=== PATIENT | female | born 1960 | race Caucasian/White ===

== ENCOUNTER → 2016-12-11 | Outpatient (CLI) | payer OTHER ==
[~2016-12-11] MED LIST: ADVIN25/60 INH; ALBU1AER9 INH; CLIN300C2 PO; CLON0.1T12 PO; CLON0.5T3 PO; DICL1GEL12 TOP; DICL1GEL28 TOP; LSN/2025 PO; LSN40 PO; MAGN250T22 PO; METF-841 PO; METF500T5 PO; OXYC1TAB3 PO; POTA20TA16 PO; PROM25TA9 PO
[2016-12-11 12:58] LABS: HEMATOCRIT 42.6 % (37-47); MEAN CELL VOLUME 89.1 fL (80-100); MEAN CORPUSCULAR HEMOGLOBIN 29.5 pg (25-34); MEAN CORPUSCULAR HGB CONC 33.1 g/dl (32-36); MEAN PLATELET VOLUME 11.9 fL (7.4-10.4); PLATELET COUNT 295 K/uL (130-400); RED BLOOD COUNT 4.78 M/uL (4.2-5.4)
[2016-12-11 13:10] LABS: ALT/SGPT 25 U/L (12-78); AST/SGOT 11 U/L (15-37); BLOOD UREA NITROGEN 9 mg/dl (7-18); BUN/CREATININE RATIO 12.6 (10-20); CALCIUM 8.8 mg/dl (8.5-10.1); CARBON DIOXIDE 31 mmol/L (21-32); CHLORIDE 105 mmol/L (98-107); CREATININE 0.73 mg/dl (0.60-1.20); GLUCOSE 107 mg/dl (70-99); SODIUM 142 mmol/L (136-145)
[2016-12-11 13:13] LABS: ALB/GLOB RATIO 1.6 (0.9-2); ALKALINE PHOSPHATASE 72 U/L (45-117); CHOLESTEROL 200 mg/dl (0-200); CHOLESTEROL/HDL RATIO 2.9; HDL CHOLESTEROL 68 mg/dl; LDL CHOLESTEROL CALCULATED 98 mg/dl; TRIGLYCERIDES 170 mg/dl (0-150); VERY LOW DENSITY LIPOPROT CALC 34 mg/dl
[2016-12-11 13:58] LABS: ESTIMATED AVERAGE GLUCOSE 123 mg/dl; HA1C FLAG Normal (Normal)
== END | disposition home or self-care (01) ==
LOC: C.LAB 11:46
PROVIDERS: ATTEND Family Medicine
DX: L40.50 Arthropathic psoriasis, unspecified (principal); I10 Essential (primary) hypertension; E11.9 Type 2 diabetes mellitus without complications; E78.5 Hyperlipidemia, unspecified

== ENCOUNTER → 2016-12-13 | Outpatient (CLI) | payer OTHER | END | disposition home or self-care (01) | LOC: C.PATHSPEC 11:44 | PROVIDERS: ATTEND Plastic Surgery | DX: L98.9 Disorder of the skin and subcutaneous tissue, unspecified (principal) ==

== ENCOUNTER → 2017-02-28 | Outpatient (CLI) | payer OTHER ==
[2017-02-28 14:27] LABS: BENZODIAZEPINE, URINE NEG (NEG); COCAINE,URINE NEG (NEG); PHENCYCLIDINE, URINE NEG (NEG)
== END | disposition home or self-care (01) ==
LOC: C.LAB 12:34
PROVIDERS: ATTEND Family Medicine
DX: Z51.81 Encounter for therapeutic drug level monitoring (principal)

== ENCOUNTER → 2017-05-17 | Outpatient (CLI) | payer OTHER ==
[2017-05-17 12:22] LABS: BASO ABS # 0.07 K/uL (0-0.2); COMPLETE YES; EOS % 10.3 %; HEMATOCRIT 44.5 % (37-47); IG% 0.3 %; LYMPH % 33.5 %; LYMPH ABS # 2.27 K/uL (1.2-3.4); MEAN CELL VOLUME 90.3 fL (80-100); MEAN CORPUSCULAR HEMOGLOBIN 29.4 pg (25-34); MEAN CORPUSCULAR HGB CONC 32.6 g/dl (32-36); NEUT % 49.9 %; PLATELET COUNT 221 K/uL (130-400); RED BLOOD COUNT 4.93 M/uL (4.2-5.4); WHITE BLOOD COUNT 6.78 K/uL (4.8-10.8)
[2017-05-17 12:43] LABS: ALT/SGPT 27 U/L (12-78); BLOOD UREA NITROGEN 13 mg/dl (7-18); BUN/CREATININE RATIO 19.5 (10-20); CARBON DIOXIDE 25 mmol/L (21-32); CHLORIDE 106 mmol/L (98-107); CHOLESTEROL 198 mg/dl (0-200); CREATININE 0.64 mg/dl (0.60-1.20); GLUCOSE 99 mg/dl (70-99); POTASSIUM 3.9 mmol/L (3.5-5.1); SODIUM 141 mmol/L (136-145); TRIGLYCERIDES 78 mg/dl (0-150); VERY LOW DENSITY LIPOPROT CALC 16 mg/dl
[2017-05-17 12:54] LABS: ALB/GLOB RATIO 1.3 (0.9-2); ALKALINE PHOSPHATASE 63 U/L (45-117); AST/SGOT 16 U/L (15-37); CHOLESTEROL/HDL RATIO 2.6; HDL CHOLESTEROL 76 mg/dl; LDL CHOLESTEROL CALCULATED 106 mg/dl
[2017-05-17 13:50] LABS: ESTIMATED AVERAGE GLUCOSE 120 mg/dl; HA1C FLAG Normal (Normal)
== END | disposition home or self-care (01) ==
LOC: C.LAB 10:48
PROVIDERS: ATTEND Nurse Practitioner Family
DX: E11.9 Type 2 diabetes mellitus without complications (principal); E78.5 Hyperlipidemia, unspecified; Z13.29 Encounter for screening for other suspected endocrine disorder

== ENCOUNTER 2017-06-07 01:11 | Emergency (ER) | payer OTHER ==
[~2017-06-07] VITALS: Ht 161.3 cm; Wt 74.4 kg
[~2017-06-07 01:11] MED LIST changes: -CLIN300C2 PO; -DICL1GEL12 TOP; -LSN40 PO; -MAGN250T22 PO; -METF-841 PO; -OXYC1TAB3 PO
[2017-06-07 01:18] VITALS: TEMP 36.6; Ht 161.3 cm; Wt 74.4 kg
[2017-06-07] MEDS ORDERED: OXYC1TAB3 PO (01:58)
[2017-06-07] MEDS ORDERED: LSN40 PO (01:58)
[2017-06-07] MEDS ORDERED: DICL1GEL12 TOP (01:58)
[2017-06-07] MEDS ORDERED: METF-841 PO (01:58)
[2017-06-07] MEDS ORDERED: MAGN250T22 PO (01:58)
[2017-06-07 02:24] LABS: BASO % 0.4 %; BASO ABS # 0.04 K/uL (0-0.2); COMPLETE YES; EOS % 7.4 %; IG% 0.3 %; LYMPH % 33.9 %; LYMPH ABS # 3.74 K/uL (1.2-3.4); MEAN CELL VOLUME 90.2 fL (80-100); MEAN CORPUSCULAR HEMOGLOBIN 29.7 pg (25-34); MEAN PLATELET VOLUME 11.2 fL (7.4-10.4); MONO % 5.6 %; NEUT % 52.4 %; PLATELET COUNT 295 K/uL (130-400); RED BLOOD COUNT 4.88 M/uL (4.2-5.4); WHITE BLOOD COUNT 11.02 K/uL (4.8-10.8)
[2017-06-07] MEDS ORDERED: CEFTRIAXONE SOD INJ 1 GM ADDVIAL IV STA (02:26)
[2017-06-07 02:45] LABS: BUN/CREATININE RATIO 15.6 (10-20); CALCIUM 9.3 mg/dl (8.5-10.1); CREATININE 0.92 mg/dl (0.60-1.20); POTASSIUM 3.6 mmol/L (3.5-5.1)
[2017-06-07 02:46] LABS: C-REACTIVE PROTEIN 0.32 mg/dl (0-0.29)
[2017-06-07] MEDS ORDERED: CLIN300C2 PO (03:14)
[2017-06-07] MEDS ORDERED: CLINDAMYCIN 150MG HOME PACK PO ONE (03:15)
--- NOTE | 2017-06-07 03:15 | EMERGENCY ROOM VISIT NOTE ---
History First contact with patient: 01:33 Chief Complaint: INFECTION Stated Complaint: SKIN PROBLEM Nursing Triage Summary: pt reports she was stung by a wasp on June 04. reports increased swelling to right foot with blistering. states "it feels like burning. it didn't look like this yesterday." right foot noted to have +3 pitting edema and 2 quarter sized blisters, intact, on the outer aspect of right ankle. sensation intact. no drainage or openings at this time. History of Present Illness The patient is a 57 year old female who presents to the Emergency Room with complaints of swelling and redness of the right lower leg. The patient states that she was stung by a wasp 3 days ago. She states that soon after, she developed mild redness and warmth surrounding the area of the sting. She states that she was at work today and noticed swelling of the lower leg and foot. She has a few areas of blistering to the outside of the right lower leg. She rates her discomfort a 6/10. She denies any fevers. She denies any difficulty moving the ankle. She denies any history of infections. The patient is diabetic. Review of Systems A complete 10 point review of systems was reviewed with the patient with pertinent positives and negatives as per history of present illness. All else were negative. Past Medical/Surgical History Medical Problems: (1) Psoriatic arthritis (2) Spinal stenosis Family History Hypertension Stroke FATHER Social History Smoking Status: Never Smoker Alcohol Use: none Drug Use: none Marital Status: single Housing Status: lives alone Occupation Status: employed Current/Historical Medications Scheduled Clindamycin Hcl (Cleocin), 300 MG PO QID Lisinopril (Lisinopril), 40 MG PO DAILY Magnesium Oxide (Magnesium), Unknown Dose PO DAILY Metformin HCl (Metformin HCl ER), 1,000 MG PO BID Scheduled PRN Diclofenac Sodium (Topical) (Voltaren 1% Top Gel), 1 APPLN TOP QID PRN for Pain Oxycodone Ir (Roxicodone Ir), 5 MG PO QID PRN for Pain Allergies Coded Allergies: Aspirin (Verified Allergy, Unknown, 06/07/17) NSAIDs (Verified Allergy, Unknown, ., 06/07/17) Sulfa Drugs (Verified Allergy, Unknown, 06/07/17) Physical Exam Vital Signs Date Time Temp Pulse Resp B/P (MAP) Pulse Ox O2 Delivery O2 Flow Rate FiO2 7/7/17 03:18 91 18 138/92 97 Room Air 06/07/17 01:18 36.6 94 16 136/91 96 Room Air Physical Exam VITALS: Vitals are noted on the nurse's note and reviewed by myself. Vital signs stable. GENERAL: This is a 57-year-old female, in no acute distress, nondiaphoretic, well-developed well-nourished. HEART: Regular rate and rhythm without murmurs gallops or rubs. LUNGS: Clear to auscultation bilaterally without wheezes, rales or rhonchi. EXTREMITIES: There is an area of erythema and warmth to touch over the anterior right lower leg which measures approximately 6 cm in diameter. There is moderate nonpitting edema to the right foot and lower leg. There are a few blisters over the lateral right ankle. The erythema does not extend into the foot. There is no lymphangitic streaking. MUSCULOSKELETAL: Full range of motion of the right ankle. NEURO: Patient was alert and oriented to person place and time. Medical Decision & Procedures Laboratory Results 06/07/17 02:14 Red Blood Count 4.88, Mean Corpuscular Volume 90.2, Mean Corpuscular Hemoglobin 29.7, Mean Corpuscular Hemoglobin Concent 33.0, Mean Platelet Volume 11.2, Neutrophils (%) (Auto) 52.4, Lymphocytes (%) (Auto) 33.9, Monocytes (%) (Auto) 5.6, Eosinophils (%) (Auto) 7.4, Basophils (%) (Auto) 0.4, Neutrophils # (Auto) 5.77, Lymphocytes # (Auto) 3.74, Monocytes # (Auto) 0.62, Eosinophils # (Auto) 0.82, Basophils # (Auto) 0.04 06/07/17 02:14 Test 06/07/17 02:14 White Blood Count 11.02 K/uL (4.8-10.8) Red Blood Count 4.88 M/uL (4.2-5.4) Hemoglobin 14.5 g/dL (12.0-16.0) Hematocrit 44.0 % (37-47) Mean Corpuscular Volume 90.2 fL (80-100) Mean Corpuscular Hemoglobin 29.7 pg (25-34) Mean Corpuscular Hemoglobin Concent 33.0 g/dl (32-36) Platelet Count 295 K/uL (130-400) Mean Platelet Volume 11.2 fL (7.4-10.4) Neutrophils (%) (Auto) 52.4 % Lymphocytes (%) (Auto) 33.9 % Monocytes (%) (Auto) 5.6 % Eosinophils (%) (Auto) 7.4 % Basophils (%) (Auto) 0.4 % Neutrophils # (Auto) 5.77 K/uL (1.4-6.5) Lymphocytes # (Auto) 3.74 K/uL (1.2-3.4) Monocytes # (Auto) 0.62 K/uL (0.11-0.59) Eosinophils # (Auto) 0.82 K/uL (0-0.5) Basophils # (Auto) 0.04 K/uL (0-0.2) RDW Standard Deviation 49.4 fL (36.4-46.3) RDW Coefficient of Variation 14.9 % (11.5-14.5) Immature Granulocyte % (Auto) 0.3 % Immature Granulocyte # (Auto) 0.03 K/uL (0.00-0.02) Erythrocyte Sedimentation Rate 2 mm/hr (0-21) Anion Gap 6.0 mmol/L (3-11) Est Creatinine Clear Calc Drug Dose 65.1 ml/min Estimated GFR () 79.6 Estimated GFR (Non- 68.6 BUN/Creatinine Ratio 15.6 (10-20) Calcium Level 9.3 mg/dl (8.5-10.1) C-Reactive Protein 0.32 mg/dl (0-0.29) Medications Administered Medications (Trade) Dose Ordered Sig/Subha Route Start Time Stop Time Status Last Admin Dose Admin Ceftriaxone Sodium (Rocephin Inj) 1 gm NOW STAT IV 06/07/17 02:26 06/07/17 02:27 DC 06/07/17 02:37 1 GM Clindamycin HCl (Cleocin 150MG Home Pack) 1 homepack UD ONCE PO 06/07/17 03:15 06/07/17 03:16 DC 06/07/17 03:22 1 HOMEPACK ED Course The patient was evaluated as above. Labs were drawn and IV access was obtained. Patient was medicated with 1 g Rocephin IV. Patient was reevaluated and findings were discussed. The patient will be discharged home with close follow up. Discharge instructions were reviewed with the patient. She was given a homepack of Clindamycin. The patient verbalized understanding of my assessment and treatment plan and was discharged home in good condition. Medical Decision Differential diagnosis includes cellulitis, abscess, allergic reaction, DVT, among others. The patient is a 57-year-old female who presents today complaining of redness and swelling of the right lower leg. Exam is consistent with cellulitis. The patient does have impressive swelling. Labs revealed a mild leukocytosis. The patient is afebrile. She has good range of motion of the ankle and I do not feel she has a septic joint. She will be placed on clindamycin as she has an allergy to sulfa antibiotics. I did encourage her to elevate her legs to help with swelling. She will need close follow-up with her primary care provider and will need to return here immediately if her symptoms worsen. Based on the patient's presentation and work up, I feel the patient is stable for outpatient treatment. The patient was educated to return to the emergency department for any worsening of their current condition or new/concerning symptoms. She will follow up with her PCP. Medication reconciliation: I attest that I have personally reviewed the patient 's current medication list. Blood Pressure Screening: Patient was found to have a slightly elevated blood pressure due to circumstances. I do not believe that the patient requires hypertension monitoring. Impression Primary Impression: Cellulitis of lower extremity Departure Information Dispostion Home / Self-Care Condition GOOD Prescriptions Clindamycin Hcl (CLEOCIN) 300 Mg Cap 300 MG PO QID for 7 Days, #28 CAP Prov: Yamileth Gannon PA-C 06/07/17 Referrals Oscar Young III, CRNP (PCP) Patient Instructions My [facility] Additional Instructions You were prescribed clindamycin to be taken as prescribed. This is an antibiotic. All antibiotics have the potential to cause diarrhea. Stop this medication and contact a medical provider if you were to develop any significant adverse side effects including: wheezing, shortness of breath, passing out, vomiting, or a diffuse rash. Always take antibiotics as directed and COMPLETE the ENTIRE course regardless of the improvement of your symptoms. For pain control, you can use the following [id number] medicines (if >12 yo): - Regular strength (325mg/tab) Tylenol (acetaminophen) 2 tabs every 4-6 hours as needed. Do not exceed 12 tablets in a 24 hour period. Avoid taking more than 4 grams (4000 mg) of Tylenol per day. This includes any other sources of acetaminophen you may take on a regular basis. - Regular strength (200 mg/tab) Advil (ibuprofen) 1-2 tabs every 4-6 hours as needed. Do not exceed a dose of 3200 mg per day. Follow-up with your primary care provider for a recheck on Saturday. Return here for worsening pain, worsening swelling, increasing redness, fever or any other new/concerning symptoms. Problem Qualifiers Primary Impression: Cellulitis of lower extremity Laterality: right Qualified Codes: L03.115 - Cellulitis of right lower limb
[2017-06-07 03:18] VITALS: BP 138/92; PULSE 91; O2SAT 97
== END 2017-06-07 03:29 | disposition home or self-care (01) ==
LOC: C.EDB 01:11
DX: L03.115 Cellulitis of right lower limb (principal); S90.861A Insect bite (nonvenomous), right foot, initial encounter; W57.XXXA Bitten or stung by nonvenomous insect and other nonvenomous arthropods, initial encounter

== ENCOUNTER → 2017-09-23 | Outpatient (CLI) | payer OTHER ==
[~2017-09-23] MED LIST changes: -ADVIN25/60 INH; -ALBU1AER9 INH; -CLON0.1T12 PO; -CLON0.5T3 PO; +DICL1GEL12 TOP; -DICL1GEL28 TOP; -LSN/2025 PO; +LSN40 PO; +MAGN250T22 PO; +METF-841 PO; -METF500T5 PO; +OXYC1TAB3 PO; -POTA20TA16 PO; -PROM25TA9 PO
== END | disposition home or self-care (01) ==
LOC: C.PATHSPEC 16:35
PROVIDERS: ATTEND Dermatology
DX: D22.9 Melanocytic nevi, unspecified (principal)

== ENCOUNTER → 2018-01-02 | Outpatient (CLI) | payer BC ==
[2018-01-02 12:38] LABS: BLOOD UREA NITROGEN 12 mg/dl (7-18); CARBON DIOXIDE 31 mmol/L (21-32); CREATININE 0.84 mg/dl (0.60-1.20); GLUCOSE 101 mg/dl (70-99); POTASSIUM 3.8 mmol/L (3.5-5.1); SODIUM 139 mmol/L (136-145)
== END | disposition home or self-care (01) ==
LOC: C.LAB1850 10:53
PROVIDERS: ATTEND Nurse Practitioner Adult Health
DX: I10 Essential (primary) hypertension (principal)

== ENCOUNTER → 2018-02-21 | Outpatient (CLI) | payer BC | END | disposition home or self-care (01) | LOC: C.LAB 14:46 | PROVIDERS: ATTEND Physician Assistant | DX: R19.7 Diarrhea, unspecified (principal) ==

== ENCOUNTER 2019-10-20 15:56 | Observation (INO) ==
[2019-10-20 16:47] LABS: Basophils # (auto) 0.08 K/uL (0-0.2); Eosinophils # (auto) 0.38 K/uL (0-0.5); Eosinophils % (auto) 4.7 %; Hemoglobin 15.8 g/dL (12.0-16.0); Immature Granulocytes # (auto) 0.02 K/uL (0.00-0.02); Immature Granulocytes % (auto) 0.2 %; Lymphocytes # (auto) 2.83 K/uL (1.2-3.4); Lymphocytes % (auto) 35.2 %; Mean Corpuscular Hemoglobin 30.1 pg (25-34); Mean Corpuscular Hgb Conc 34.3 g/dL (32-36); Mean Corpuscular Volume 87.6 fL (80-100); Mean Platelet Volume 11.5 fL (7.4-10.4); Monocytes # (auto) 0.48 K/uL (0.11-0.59); Neutrophils # (auto) 4.26 K/uL (1.4-6.5); Neutrophils % (auto) 52.9 %; Platelet Count 258 K/uL (130-400); RDW Coefficient of Variation 14.4 % (11.5-14.5); RDW Standard Deviation 46.2 fL (36.4-46.3); Red Blood Count 5.25 M/uL (4.2-5.4); White Blood Count 8.05 K/uL (4.8-10.8)
--- NOTE | 2019-10-20 16:50 | XRay Report ---
XR chest 1V portable CLINICAL HISTORY: 59 years-old Female presenting with htn. TECHNIQUE: Portable upright AP view of the chest was obtained. COMPARISON: 01/09/2009. FINDINGS: Cardiac silhouette mildly enlarged. No focal opacity. No large effusion or pneumothorax. Osseous stru ctures normal. Upper abdomen normal. IMPRESSION: 1. No acute cardiopulmonary disease. Electronically signed by: Ghulam Combs M.D. 10/20/2019 4:48 PM
[2019-10-20 16:56] LABS: INR 0.9 (0.9-1.1); Prothrombin Time 9.7 Seconds (9.0-12.0)
[2019-10-20 17:10] LABS: Alanine Aminotransferase 25 U/L (12-78); Albumin Level 4.4 gm/dl (3.4-5.0); Aspartate Aminotransferase 17 U/L (15-37); BUN Creatinine Ratio 6.8 (10-20); Blood Urea Nitrogen 6 mg/dl (7-18); Calcium 9.8 mg/dl (8.5-10.1); Carbon Dioxide 22 mmol/L (21-32); Chloride 105 mmol/L (98-107); Est GFR (African American) 81.6; Est GFR (Non-African American) 70.4; Glucose 89 mg/dl (70-99); Potassium 3.1 mmol/L (3.5-5.1); Sodium 140 mmol/L (136-145)
[2019-10-20 17:15] LABS: Albumin Globulin Ratio 1.3 (0.9-2); Alkaline Phosphatase 79 U/L (45-117); Bilirubin,Total 0.4 mg/dl (0.2-1); Globulin 3.4 gm/dl (2.5-4.0); Total Protein 7.8 gm/dl (6.4-8.2); Troponin I < 0.015 ng/ml (0-0.045)
[2019-10-20 18:10] LABS: Appearance Urine Clear (Clear); Bilirubin Urine Negative (Negative); Blood Urine Negative (Negative); Color Urine Yellow; Glucose Urine UA Negative (Negative); Ketones Urine 1+ (Negative); Leukocyte Esterase Urine Negative (Negative); Nitrite Urine Negative (Negative); Protein Urine Negative (Negative); Specific Gravity Urine 1.009 (1.000-1.030); Urobilinogen Urine Negative (Negative)
[2019-10-20] MEDS ORDERED: LABETALOL HCL IV 5 MG/ML 20ML IV STA ×2 (18:21→19:05)
[2019-10-20] MEDS ORDERED: ACETAMINOPHEN 500 MG TAB PO STA (18:30)
[2019-10-20] MEDS ORDERED: GLUCOSE 10 TABS/TUBE PO PRN (20:12)
[2019-10-20] MEDS ORDERED: GLUCOSE 40% GEL 15 GM TUBE PO PRN (20:12)
[2019-10-20] MEDS ORDERED: CARBOHYDRATES FOR HYPOGLYCEMIA PO PRN (20:12)
[2019-10-20] MEDS ORDERED: LABETALOL HCL IV 5 MG/ML 20ML IV PRN (20:12)
[2019-10-20] MEDS ORDERED: GLUCAGON FOR INJ 1 MG VIAL SQ PRN (20:12)
[2019-10-20] MEDS ORDERED: ACETAMINOPHEN 325 MG TAB PO PRN (20:12)
[2019-10-20] MEDS ORDERED: POTASSIUM CHLORIDE 20 MEQ TABCR PO STA (20:12)
[2019-10-20] MEDS ORDERED: AMLODIPINE BESYLATE 5 MG TAB PO ONE (20:12)
[2019-10-20] MEDS ORDERED: hydroCHLOROthiazide 25 MG TAB PO STA (20:12)
[2019-10-20] MEDS ORDERED: DEXTROSE 50% 50 ML SYRINGE IV PRN (20:12)
--- NOTE | 2019-10-20 20:43 | History & Physical Report ---
Date of Service October 20, 2019 Assessment & Plan (1) Hypertensive urgency: -Admit to telemetry -Patient presenting from home for evaluation of elevated blood pressure -Patient was seen by PCP on 10/01 and lisinopril was changed to irbesartan; patient notes increasing blood pressure since that time -irbesartan was increased from 75 mg to 150 mg yesterday; patient started Norvasc 2.5 mg today (with instructions to increase to 5 mg daily in 1 week) -Upon arrival to the ED, patient's blood pressure was significantly elevated at 210/141 -Received labetalol 10 mg IV x2 doses and BP improved to 185/108 -will increase Norvasc to 5 mg daily (giving 2.5 mg tonight), start HCTZ 12.5 mg daily, and continue irbesartan; patient also takes clonidine 0.1 mg nightly for sleep, will continue, consider increasing if needed for BP control -PRN labetalol -Echo -Renal artery ultrasound to evaluate for stenosis (2) Hypokalemia: -K+ 3.1 -Mg+ WNL -potassium chloride 40meq x 1 tonight; start 20meq BID tomorrow due to starting HCTZ (3) DM type 2 (diabetes mellitus, type 2): -hgb a1c 5.9 10/2019 -hold metformin, utilize Novolog per protocol while hospitalized (4) Psoriatic arthritis: -Continue home pain medications (5) DVT prophylaxis: -SCDs, ambulate History of Present Illness Chief Complaint: Hypertension Primary Care Provider: Juanita Desai DO 59-year-old female who presents the ED for evaluation of hypertension. Patient has been having ongoing elevated blood pressures for the past couple weeks. Patient was seen by her PCP on 10/01 and at that time lisinopril 40 mg was changed to irbesartan 75 mg daily. Patient has been monitoring her blood pressure as an outpatient and irbesartan was increased to 150 mg yesterday. This morning, patient started Norvasc 2.5 mg daily. She reports an ongoing headache for the past 1 month. She denies any blurred vision. No unilateral weakness, numbness, tingling. She denies lightheadedness, dizziness, diaphore sis, syncopal events. No chest pain or shortness of breath. Denies abdominal pain, nausea, vomiting, diarrhea. No other recent illnesses, fevers, chills. She has noted some increased urinary frequency however denies any dysuria. Upon arrival to the ED, patient's BP is found to be 210/141. She was given labetalol 10 mg IV x2 with improvement in BP and headache. Allergies Allergy/AdvReac Type Severity Reaction Status Date / Time aspirin Allergy Unknown SEVERE Verified 10/20/19 16:21 ABDOMINAL PAIN doxycycline Allergy Unknown SEVERE Verified 10/20/19 16:21 ABDOMINAL PAIN NSAIDS (Non-Steroidal Allergy Unknown CHEST Verified 10/20/19 16:21 Anti-Inflamma TIGHTNESS ON OCC, SEVERE ABDOMINAL PAIN Sulfa (Sulfonamide Allergy Unknown Anaphylaxis Verified 10/20/19 16:21 Antibiotics) Home Medications Home Medications Medication Instructions Recorded Confirmed Type metformin 500 mg tablet,extended 1,000 mg PO BID 90 Days #360 tab 07/17/19 10/20/19 Rx release 24hr cholecalciferol (vitamin D3) 1,000 units PO QAM 09/04/19 10/20/19 History naltrexone 3 mg PO HS 09/04/19 10/20/19 History amlodipine 2.5 mg PO DAILY 10/20/19 10/20/19 History clonidine HCl 0.1 mg PO HS 10/20/19 10/20/19 History irbesartan 150 mg PO DAILY 10/20/19 10/20/19 History oxycodone 5 mg PO QID PRN 10/20/19 10/20/19 History Past Med/Surg History Medical History Asthma NO MEDS DM type 2 (diabetes mellitus, type 2) Psoriatic arthritis (Chronic) Spinal stenosis (Chronic) Surgical History History of anesthesia reaction BP ELEVATES POST OP History of colonoscopy S/P cholecystectomy S/P hysterectomy S/P sinus surgery S/P tonsillectomy Family History Uncle Colon cancer Father Stroke Mother Rheumatoid arthritis Stroke Grandmother (Paternal) Family history of diabetes mellitus Other Ulcerative colitis Social History Preferred Language: Danish Communication Ability: Effective Hearing Ability: Normal 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 Beliefs That Will Affect Care: None marital status: / Current Living Situation: Alone current occupational status: employed Other Information That Helps Us Care for You: No Feels Safe at Home: Yes Safety Concerns: Feels Safe At This Time Smoking Status: Former smoker Tobacco Type: cigarettes ; Do You Dip or Chew Tobacco: No ; Second Hand Exposure: No ; Hx Alcohol Use: Yes Alcohol type: hard liquor Alcohol Intake Frequency: Rarely Hx Substance Use: No Dental Care, Regularly: Yes Physical Activity Frequency: Does not Exercise Seatbelt Use: always Sunscreen Use: Yes Review of Systems Review of Systems: ROS per HPI, all other systems reviewed and negative Physical Exam Constitutional: WD/WN, vitals as above Eyes: PERRL, conjunctivae normal, anicteric sclerae ENMT: external ear and nose normal, oropharynx normal Respiratory: normal respiratory effort, lungs clear to auscultation Cardiovascular: Rate/Rhythm: regular rate and regular rhythm Vessels: normal peripheral pulses Extremities: + edema (+1 edema BLE) Gastrointestinal (Abdomen): normal bowel sounds, soft, nontender, no hepatosplenomegaly Musculoskeletal: no cyanosis or clubbing, extremities motor strength 5/5 Skin: no rashes, warm and dry Neurologic: PERRL, EOMI, accommodation nl, no face palsy, no dysarthria Psychiatric: A+Ox3, euthymic affect Results & Data Vital Signs (Past 12 Hours) Vital Signs Temp Pulse Pulse Resp BP BP Pulse Ox 10/20/19 19:46 80 19 185/108 H 98 10/20/19 19:30 80 21 188/137 H 10/20/19 19:29 77 18 181/131 H 10/20/19 19:15 71 8 L 10/20/19 19:00 72 12 205/121 H 10/20/19 18:40 81 14 245/134 H 96 10/20/19 18:39 91 H 20 245/134 H 98 10/20/19 18:30 81 17 98 10/20/19 18:01 94 H 16 235/138 H 97 10/20/19 18:00 87 14 216/133 H 99 10/20/19 17:54 74 17 213/133 H 98 10/20/19 17:00 199/129 H 10/20/19 16:39 97 10/20/19 16:28 86 19 228/145 H 10/20/19 16:02 36.8 C 108 H 20 210/141 H 98 Laboratory Results Short CBC 10/20/19 Range/Units 16:36 WBC 8.05 (4.8-10.8) K/uL Hgb 15.8 (12.0-16.0) g/dL Hct 46.0 (37-47) % Plt Count 258 (130-400) K/uL BMP 10/20/19 16:36 Sodium 140 Potassium 3.1 L Chloride 105 Carbon Dioxide 22 BUN 6 L Creatinine 0.89 Glucose 89 Calcium 9.8 Cardiac Enzymes 10/20/19 Range/Units 16:36 Troponin I < 0.015 (0-0.045) ng/ml Liver Function 10/20/19 Range/Units 16:36 Total Bilirubin 0.4 (0.2-1) mg/dl AST 17 (15-37) U/L ALT 25 (12-78) U/L Alkaline Phosphatase 79 (45-117) U/L Albumin 4.4 (3.4-5.0) gm/dl Urine 10/20/19 Range/Units 17:30 Urine Color Yellow Urine Appearance Clear (Clear) Urine pH 5.0 (4.5-7.5) Ur Specific [place] 1.009 (1.000-1.030) Urine Protein Negative (Negative) Urine Glucose (UA) Negative (Negative) Diagnostic Findings CXR IMPRESSION: 1. No acute cardiopulmonary disease Code Status & VTE Plan VTE Prophylaxis Plan VTE Prophylaxis will be ordered: Yes Supervising Physician Co-Signing Physician Notes Attending addendum The patient was seen and examined in emergency room She has been complaining of headache without any other significant symptoms and is noted to have very high blood pressure in the emergency room Denies any chest pain and/or palpitation, any abdominal pain, nausea and/or vomiting and no neurological symptoms On examination Anxious without any apparent distress Blood pressure remains high at systolic more than 180 during my examination Chest-clear to auscultate bilaterally Heart-S1-S2, regular, no murmur Abdomen-benign, no renal bruit Extremities-1+ edema bilaterally Admission labs, EKG and imaging studies reviewed Has hypertensive urgency with headache Will give intravenous labetalol, Nitropaste and continue her usual medications as an outpatient Will get echo of the heart and renal artery ultrasound Agree with assessment and plan as outlined above by Veronika Meza
[2019-10-20] MEDS ORDERED: OXYCODONE HCL IR 5 MG TAB (IMMEDIATE RELEASE) PO PRN (20:56)
[2019-10-20] MEDS ORDERED: cloNIDine HCl 0.1 MG TAB PO SCH (21:00)
[2019-10-20] MEDS: INSULIN ASPART 100 UNITS/ML 3 ML PEN SC SCH (21:25)
--- NOTE | 2019-10-20 22:04 | Ultrasound Report ---
US duplex renal artery CLINICAL HISTORY: Hypertension. COMPARISON STUDY: Abdomen and pelvis CT 07/01/2015. FINDINGS: The right kidney measures 11.6 cm and the left kidney measures 13.0 cm. The bilateral renal veins are patent. Normal peak systolic velocities within the bilateral renal arteries measuring up t o 89 cm/s on the right and 153 cm/s on the left.. Normal resistive indices within the bilateral renal arcuate arteries. No hydronephrosis. IMPRESSION: No evidence for renal artery stenosis. Electronically signed by: Drew Herring M.D. 10/20/2019 10:02 PM
--- NOTE | 2019-10-20 22:38 | Emergency Department Note ---
Entered by Tianna Dee acting as a scribe for Albin Maritnez DO History of Present Illness General Chief complaint: Hypertension Stated complaint: HIGH BLOOD PRESSURE Source: patient History of Present Illness Onset (ago): week(s) 1 Location: chest (hypertension) Severity: mild and similar to prior episodes Pain Consistency: + other (persistent) Maximum Pain Intensity: 4 Quality: + other (hypertension) Relieved By: not by medication (Norvasc, Avopro) Associated symptoms: + headaches; no chest pain, no nausea/vomiting, no shortness of breath, no weakness and no other (Diarrhea, numbness, vision changes) Treatments prior to arrival: other (Avopro, Norvasc) The patient is a 59 year old female presenting to the Emergency Department complaining of persistent hypertension starting 1 week ago. The patient reports that she manually took her blood pressure at home and that her systolic pressure was about 190. She states that she has experienced hypertension before. She states that she has a mild headache and that she usually gets headaches when her blood pressure is high. She explains that she has been keeping track of her blood pressure and that it hasnt been coming down. She notes that she recently began taking 2.5 mg Norvasc and that this dose is supposed to increase to 5mg after 1 week. She adds that she also take Avopro. The patient reports that she took both of these medications today at 0900. She states that her Avopro dose was increased yesterday. She denies vision changes, chest pain, shortness of breath, nausea, vomiting, diarrhea and numbness or weakness. Home Medications Home Medications Medication Instructions Recorded Confirmed Type metformin 500 mg tablet,extended 1,000 mg PO BID 90 Days #360 tab 07/17/19 10/20/19 Rx release 24hr cholecalciferol (vitamin D3) 1,000 units PO QAM 09/04/19 10/20/19 History naltrexone 3 mg PO HS 09/04/19 10/20/19 History amlodipine 2.5 mg PO DAILY 10/20/19 10/20/19 History clonidine HCl 0.1 mg PO HS 10/20/19 10/20/19 History irbesartan 150 mg PO DAILY 10/20/19 10/20/19 History oxycodone 5 mg PO QID PRN 10/20/19 10/20/19 History Allergies Allergy/AdvReac Type Severity Reaction Status Date / Time aspirin Allergy Unknown SEVERE Verified 10/20/19 16:21 ABDOMINAL PAIN doxycycline Allergy Unknown SEVERE Verified 10/20/19 16:21 ABDOMINAL PAIN NSAIDS (Non-Steroidal Allergy Unknown CHEST Verified 10/20/19 16:21 Anti-Inflamma TIGHTNESS ON OCC, SEVERE ABDOMINAL PAIN Sulfa (Sulfonamide Allergy Unknown Anaphylaxis Verified 10/20/19 16:21 Antibiotics) Past Med/Surg History Medical History Asthma NO MEDS DM type 2 (diabetes mellitus, type 2) Psoriatic arthritis (Chronic) Spinal stenosis (Chronic) Surgical History History of anesthesia reaction BP ELEVATES POST OP History of colonoscopy S/P cholecystectomy S/P hysterectomy S/P sinus surgery S/P tonsillectomy Family History Uncle Colon cancer Father Stroke Mother Rheumatoid arthritis Stroke Grandmother (Paternal) Family history of diabetes mellitus Other Ulcerative colitis Social History Preferred Language: Sami Communication Ability: Effective Hearing Ability: Normal Densitometer Reader Required: No Beliefs That Will Affect Care: None marital status: / Current Living Situation: Alone current occupational status: employed Other Information That Helps Us Care for You: No Feels Safe at Home: Yes Safety Concerns: Feels Safe At This Time Smoking Status: Former smoker Tobacco Type: cigarettes ; Do You Dip or Chew Tobacco: No ; Second Hand Exposure: No ; Hx Alcohol Use: Yes Alcohol type: hard liquor Alcohol Intake Frequency: Rarely Hx Substance Use: No Dental Care, Regularly: Yes Physical Activity Frequency: Does not Exercise Seatbelt Use: always Sunscreen Use: Yes Review of Systems See HPI for pertinent positives & negatives. and A total of 10 systems reviewed and were otherwise negative Physical Exam Vital Signs Vital Signs - 24 hr 10/20/19 16:02 10/20/19 16:28 10/20/19 16:39 Temperature 36.8 C Temperature Source Oral Pulse Rate - Lying Pulse Rate - Sitting Pulse Rate - Standing Pulse Rate 108 H 86 Pulse Rate [Apical] Pulse Rate from SpO2 Sensor Pulse Rhythm [Apical] Pulse Strength [Apical] Respiratory Rate 20 19 Respiratory Effort / Characteristics Respiratory Depth Respiratory Pattern Blood Pressure - Lying Blood Pressure - Sitting Blood Pressure- Standing Blood Pressure 210/141 H 228/145 H Blood Pressure [Right Arm] Blood Pressure Mean 164 187 Blood Pressure Mean [Right Arm] Blood Pressure Position Sitting Blood Pressure Position [Right Arm] Pulse Oximetry 98 97 Oxygen Delivery Method Room Air Room Air Sepsis Recent Fever Within 48 Hours No Sepsis New/Unexplained Change in Mental Status No Sepsis Action Taken by Nursing No Action Required 10/20/19 17:00 10/20/19 17:54 10/20/19 18:00 Temperature Temperature Source Pulse Rate - Lying Pulse Rate - Sitting Pulse Rate - Standing Pulse Rate 74 87 Pulse Rate [Apical] Pulse Rate from SpO2 Sensor 74 83 Pulse Rhythm [Apical] Pulse Strength [Apical] Respiratory Rate 17 14 Respiratory Effort / Characteristics Respiratory Depth Respiratory Pattern Blood Pressure - Lying Blood Pressure - Sitting Blood Pressure- Standing Blood Pressure 199/129 H 213/133 H 216/133 H Blood Pressure [Right Arm] Blood Pressure Mean 168 138 191 Blood Pressure Mean [Right Arm] Blood Pressure Position Blood Pressure Position [Right Arm] Pulse Oximetry 98 99 Oxygen Delivery Method Sepsis Recent Fever Within 48 Hours Sepsis New/Unexplained Change in Mental Status Sepsis Action Taken by Nursing 10/20/19 18:01 10/20/19 18:03 10/20/19 18:30 Temperature Temperature Source Pulse Rate - Lying 84 Pulse Rate - Sitting 96 H Pulse Rate - Standing 87 Pulse Rate 94 H 81 Pulse Rate [Apical] Pulse Rate from SpO2 Sensor 86 81 Pulse Rhythm [Apical] Pulse Strength [Apical] Respiratory Rate 16 17 Respiratory Effort / Characteristics Respiratory Depth Respiratory Pattern Blood Pressure - Lying 198/123 H Blood Pressure - Sitting 216/133 H Blood Pressure- Standing 235/138 H Blood Pressure 235/138 H Blood Pressure [Right Arm] Blood Pressure Mean 192 Blood Pressure Mean [Right Arm] Blood Pressure Position Blood Pressure Position [Right Arm] Pulse Oximetry 97 98 Oxygen Delivery Method Sepsis Recent Fever Within 48 Hours Sepsis New/Unexplained Change in Mental Status Sepsis Action Taken by Nursing 10/20/19 18:39 10/20/19 18:40 10/20/19 19:00 Temperature Temperature Source Pulse Rate - Lying Pulse Rate - Sitting Pulse Rate - Standing Pulse Rate 91 H 72 Pulse Rate [Apical] 81 Pulse Rate from SpO2 Sensor 91 H Pulse Rhythm [Apical] Regular Pulse Strength [Apical] Normal Respiratory Rate 20 14 12 Respiratory Effort / Characteristics Non-Labored Spontaneous Respiratory Depth Normal Respiratory Pattern Regular Blood Pressure - Lying Blood Pressure - Sitting Blood Pressure- Standing Blood Pressure 245/134 H 205/121 H Blood Pressure [Right Arm] 245/134 H Blood Pressure Mean 139 127 Blood Pressure Mean [Right Arm] 171 Blood Pressure Position Blood Pressure Position [Right Arm] Lying Pulse Oximetry 98 96 Oxygen Delivery Method Room Air Sepsis Recent Fever Within 48 Hours Sepsis New/Unexplained Change in Mental Status Sepsis Action Taken by Nursing 10/20/19 19:15 Temperature Temperature Source Pulse Rate - Lying Pulse Rate - Sitting Pulse Rate - Standing Pulse Rate 71 Pulse Rate [Apical] Pulse Rate from SpO2 Sensor Pulse Rhythm [Apical] Pulse Strength [Apical] Respiratory Rate 8 L Respiratory Effort / Characteristics Respiratory Depth Respiratory Pattern Blood Pressure - Lying Blood Pressure - Sitting Blood Pressure- Standing Blood Pressure Blood Pressure [Right Arm] Blood Pressure Mean Blood Pressure Mean [Right Arm] Blood Pressure Position Blood Pressure Position [Right Arm] Pulse Oximetry Oxygen Delivery Method Sepsis Recent Fever Within 48 Hours Sepsis New/Unexplained Change in Mental Status Sepsis Action Taken by Nursing GENERAL: Patient is sitting up in bed. Anxious appearing. Alert, well nourished, no distress, non-toxic. EYE EXAM: normal conjunctiva, PERRL and EOM's intact OROPHARYNX: no exudate, no erythema, lips, buccal mucosa, and tongue normal and mucous membranes are moist NECK: supple, no nuchal rigidity, no adenopathy, non-tender LUNGS: Clear to auscultation. Normal chest wall mechanics HEART: no murmurs, S1 normal and S2 normal ABDOMEN: abdomen soft, non-tender, normo-active bowel sounds, no masses, no rebound or guarding. BACK: Back is symmetrical on inspection and there is no deformity, no midline tenderness, no CVA tenderness. SKIN: no rashes and no bruising UPPER EXTREMITIES: upper extremities are grossly normal. LOWER EXTREMITIES: No pitting edema. NEURO EXAM: Normal sensorium, cranial nerves II-XII intact, normal speech, no weakness of arms, no weakness of legs. No drift. Finger to nose intact. Gross sensation intact. Course Course ED COURSE: Vital signs were reviewed and showed hypertension. The patients medical record was reviewed The above diagnostic studies were performed and reviewed. ED treatments and interventions as stated above. 1605: The patient was evaluated in room B7. A complete history and physical examination was performed. 1610: The patient declined CT imaging at this time. 1820: I reevaluated the patient at this time. Her systolic pressure was 235. 1829: I discussed the patients case with Veronika Boucher PA-C. Dr. Susana Jaun hospitalist will evaluate the patient for further management. 1831: Upon reevaluation, I discussed my findings with the patient and she understands and agrees with the treatment plan. Based on the patients age, coexisting illnesses, exam and lab findings the decision to treat as an inpatient was made. The patient remained stable while under my care. The patient will be evaluated for further management. Administered Medications Clonidine HCl (Catapres) 0.1 mg PO HS JORJE Stop: 11/19/19 20:59 Last Admin: 10/20/19 21:53 Dose: 0.1 mg Documented by: [id number] Insulin Aspart (Novolog Flexpen) 0 units SC ACHS JORJE Stop: 11/19/19 20:59 Last Admin: 10/20/19 21:25 Dose: Not Given Documented by: [id number] Cosigned by: [id number] Discontinued Medications Acetaminophen (Tylenol) 1,000 mg PO NOW STA Stop: 10/20/19 18:31 Last Admin: 10/20/19 18:37 Dose: 1,000 mg Documented by: [id number] Amlodipine Besylate (Norvasc) 2.5 mg PO NOW ONE Stop: 10/20/19 20:13 Last Admin: 10/20/19 20:48 Dose: 2.5 mg Documented by: [id number] Hydrochlorothiazide (Hctz) 12.5 mg PO NOW STA Stop: 10/20/19 20:13 Last Admin: 10/20/19 20:48 Dose: 12.5 mg Documented by: [id number] Labetalol HCl (Normodyne) 10 mg IV NOW STA Stop: 10/20/19 18:22 Last Admin: 10/20/19 18:37 Dose: 10 mg Documented by: [id number] Cosigned by: [id number] Labetalol HCl (Normodyne) 10 mg IV NOW STA Stop: 10/20/19 19:06 Last Admin: 10/20/19 19:30 Dose: 10 mg Documented by: [id number] Cosigned by: [id number] Potassium Chloride (Klor-Con M20) 40 meq PO NOW STA Stop: 10/20/19 20:13 Last Admin: 10/20/19 20:48 Dose: 40 meq Documented by: [id number] Critical Care Time Critical Care Time: Yes Total Critical Care Time: 31 I have personally spent 31 minutes of critical care time in the direct man agement of this patient. This includes bedside care, interpretation of diagnostic studies, and testing, discussion with consultants, patient, and family members, and other required patient management activities. This 31 minutes is in excess of all separately billable procedures. Medical Decision Making Differential Diagnosis Differential diagnoses includes but is not limited to acute coronary syndrome, myocardial infarction, pericarditis, pulmonary embolus, aortic dissection, pneumonia, pneumothorax, musculoskeletal, shingles, esophageal. Medical Records Attestation: I reviewed the patient's medical records. Home Medications Current Medication List: was personally reviewed by me Laboratory Data Attestation: I reviewed the patient's lab results. Result diagrams: 10/20/19 16:36 10/20/19 16:36 Lab Results 10/20/19 10/20/19 10/20/19 Range/Units 16:36 16:36 16:36 WBC 8.05 (4.8-10.8) K/uL RBC 5.25 (4.2-5.4) M/uL Hgb 15.8 (12.0-16.0) g/dL Hct 46.0 (37-47) % MCV 87.6 (80-100) fL MCH 30.1 (25-34) pg MCHC 34.3 (32-36) g/dL RDW Std Deviation 46.2 (36.4-46.3) fL RDW Coeff of Rafiq 14.4 (11.5-14.5) % Plt Count 258 (130-400) K/uL MPV 11.5 H (7.4-10.4) fL Immature Gran % (Auto) 0.2 % Neut % (Auto) 52.9 % Lymph % (Auto) 35.2 % [place] % (Auto) 6.0 % Eos % (Auto) 4.7 % Baso % (Auto) 1.0 % Immature Gran # (Auto) 0.02 (0.00-0.02) K/uL Neut # (Auto) 4.26 (1.4-6.5) K/uL Lymph # (Auto) 2.83 (1.2-3.4) K/uL [place] # (Auto) 0.48 (0.11-0.59) K/uL Eos # (Auto) 0.38 (0-0.5) K/uL Baso # (Auto) 0.08 (0-0.2) K/uL PT 9.7 (9.0-12.0) Seconds INR 0.9 (0.9-1.1) Sodium 140 (136-145) mmol/L Potassium 3.1 L (3.5-5.1) mmol/L Chloride 105 (98-107) mmol/L Carbon Dioxide 22 (21-32) mmol/L Anion Gap 13.0 H (3-11) BUN 6 L (7-18) mg/dl Creatinine 0.89 (0.6-1.2) mg/dl Est Cr Clr Drug Dosing Not Reportable Est GFR ( Amer) 81.6 Est GFR (Non-Af Amer) 70.4 BUN/Creatinine Ratio 6.8 L (10-20) Glucose 89 (70-99) mg/dl Calcium 9.8 (8.5-10.1) mg/dl Magnesium (1.8-2.4) mg/dl Total Bilirubin 0.4 (0.2-1) mg/dl AST 17 (15-37) U/L ALT 25 (12-78) U/L Alkaline Phosphatase 79 (45-117) U/L Troponin I < 0.015 (0-0.045) ng/ml Total Protein 7.8 (6.4-8.2) gm/dl Albumin 4.4 (3.4-5.0) gm/dl Globulin 3.4 (2.5-4.0) gm/dl Albumin/Globulin Ratio 1.3 (0.9-2) Urine Color Urine Appearance (Clear) Urine pH (4.5-7.5) Ur Specific [place] (1.000-1.030) Urine Protein (Negative) Urine Glucose (UA) (Negative) Urine Ketones (Negative) Urine Blood (Negative) Urine Nitrite (Negative) Urine Bilirubin (Negative) Urine Urobilinogen (Negative) Ur Leukocyte Esterase (Negative) 10/20/19 10/20/19 Range/Units 16:36 17:30 WBC (4.8-10.8) K/uL RBC (4.2-5.4) M/uL Hgb (12.0-16.0) g/dL Hct (37-47) % MCV (80-100) fL MCH (25-34) pg MCHC (32-36) g/dL RDW Std Deviation (36.4-46.3) fL RDW Coeff of Rafiq (11.5-14.5) % Plt Count (130-400) K/uL MPV (7.4-10.4) fL Immature Gran % (Auto) % Neut % (Auto) % Lymph % (Auto) % [place] % (Auto) % Eos % (Auto) % Baso % (Auto) % Immature Gran # (Auto) (0.00-0.02) K/uL Neut # (Auto) (1.4-6.5) K/uL Lymph # (Auto) (1.2-3.4) K/uL [place] # (Auto) (0.11-0.59) K/uL Eos # (Auto) (0-0.5) K/uL Baso # (Auto) (0-0.2) K/uL PT (9.0-12.0) Seconds INR (0.9-1.1) Sodium (136-145) mmol/L Potassium (3.5-5.1) mmol/L Chloride (98-107) mmol/L Carbon Dioxide (21-32) mmol/L Anion Gap (3-11) BUN (7-18) mg/dl Creatinine (0.6-1.2) mg/dl Est Cr Clr Drug Dosing Est GFR ( Amer) Est GFR (Non-Af Amer) BUN/Creatinine Ratio (10-20) Glucose (70-99) mg/dl Calcium (8.5-10.1) mg/dl Magnesium 1.8 (1.8-2.4) mg/dl Total Bilirubin (0.2-1) mg/dl AST (15-37) U/L ALT (12-78) U/L Alkaline Phosphatase (45-117) U/L Troponin I (0-0.045) ng/ml Total Protein (6.4-8.2) gm/dl Albumin (3.4-5.0) gm/dl Globulin (2.5-4.0) gm/dl Albumin/Globulin Ratio (0.9-2) Urine Color Yellow Urine Appearance Clear (Clear) Urine pH 5.0 (4.5-7.5) Ur Specific [place] 1.009 (1.000-1.030) Urine Protein Negative (Negative) Urine Glucose (UA) Negative (Negative) Urine Ketones 1+ H (Negative) Urine Blood Negative (Negative) Urine Nitrite Negative (Negative) Urine Bilirubin Negative (Negative) Urine Urobilinogen Negative (Negative) Ur Leukocyte Esterase Negative (Negative) Imaging Data Radiologist's Impression: Radiology results as stated below per my review and the radiologist's interpretation: XR chest 1V portable CLINICAL HISTORY: 59 years-old Female presenting with htn. TECHNIQUE: Portable upright AP view of the chest was obtained. COMPARISON: 01/09/2009. FINDINGS: Cardiac silhouette mildly enlarged. No focal opacity. No large effusion or pneumothorax. Osseous structures normal. Upper abdomen normal. IMPRESSION: 1. No acute cardiopulmonary disease. Electronically signed by: Ghulam Combs M.D. 10/20/2019 4:48 PM ECG Data Attestation: I personally reviewed and interpreted this ECG as follows: Indication: + other (hypertenison) Rate (beats per minute): 82 Rhythm: + sinus rhythm ECG [place]: + Normal ECG Findings: no PVCs Comparison ECG Date: from (06/21/15) Change: no significant change Blood Pressure Blood Pressure Findings: Elevated blood pressure Blood Pressure Disposition: further management by hospitalist JIMY Narrative Patient is a 5-year-old female who presents the ER for hypertension associate with a headache. She has been battling hypertension for the past several weeks. She just recently started on Norvasc in the past week and they have been increasing her other medications. IV was established blood work was obtained. Systolic blood pressures were in the 190s to 200. She is completely neurologic ally intact. She declined CT head after explaining risk and benefits. She is a nurse. Labs show no significant leukocytosis or anemia. INR was unremarkable. BMP with mild hypokalemia. LFTs bilirubin and troponin was negative. UA was unremarkable without protein. Chest x-ray upon my review shows no focal infiltrate. Patient's blood pressure went up to 230s. Was initially hoping that her blood pressure will trend down with rest and I would be able to increase the Norvasc however her blood pressures trended up to the 230s. She is given an IV dose of labetalol 10 mg and was reevaluated 20 minutes later and her blood pressure was still 200. She was given another dose of IV labetalol 10 mg and her blood pressure trended down to the 180s. I did feel this was sufficient as her blood pressure was initially 230. Patient was updated bedside and admitted to the hospital for further work-up of her hypertension/hypertensive urgency. Impression & Plan Hypertensive urgency, Headache, Hypokalemia Discharge Plan Visit Data *Final* Discharge Date/Time: 10/20/19 19:46 Chief Complaint: Hypertension Stated Complaint: HIGH BLOOD PRESSURE ED Provider: Albin Martinez Discharge Problem: Hypertensive urgency, Headache, Hypokalemia Patient Disposition: Admitted As Inpatient Discharge Instructions Interventions: ED Discharge Assessment Last Done: 10/20/19 19:46 Discharge Problem: Headache Qualifiers: Headache type: unspecified Headache chronicity pattern: unspecified pattern Intractability: not intractable Qualified Code(s): R51 - Headache The scribe's documentation has been prepared under my direction and personally reviewed by me in its entirety. I confirm that the note above accurately reflects all work, treatment, procedures, and medical decision making performed by me.
[2019-10-21] MEDS: [UNRECOGNIZED DRUG - REMARK] SCH ×3 (01:32→17:05)
[2019-10-21 06:50] LABS: Hematocrit (blood only) 43.3 % (37-47); Hemoglobin 14.5 g/dL (12.0-16.0); Mean Corpuscular Hemoglobin 29.4 pg (25-34); Mean Corpuscular Hgb Conc 33.5 g/dL (32-36); Mean Corpuscular Volume 87.7 fL (80-100); Mean Platelet Volume 11.9 fL (7.4-10.4); Platelet Count 255 K/uL (130-400); RDW Coefficient of Variation 14.5 % (11.5-14.5); Red Blood Count 4.94 M/uL (4.2-5.4); White Blood Count 7.65 K/uL (4.8-10.8)
[2019-10-21 07:26] LABS: BUN Creatinine Ratio 8.1 (10-20); Calcium 9.2 mg/dl (8.5-10.1); Creatinine Clr Calc Pharmacy 80.8 ml/min; Est GFR (African American) 105.5
[2019-10-21] MEDS: INSULIN ASPART 100 UNITS/ML 3 ML PEN SC SCH ×2 (07:45→13:15)
[2019-10-21] MEDS ORDERED: POTASSIUM CHLORIDE 20 MEQ TABCR PO SCH (09:00)
[2019-10-21] MEDS ORDERED: hydroCHLOROthiazide 25 MG TAB PO SCH (09:00)
[2019-10-21] MEDS ORDERED: AMLODIPINE BESYLATE 5 MG TAB PO SCH (09:00)
[2019-10-21] MEDS ORDERED: CHOLECALCIFEROL 1,000 UNITS TAB PO SCH (09:00)
[2019-10-21] MEDS ORDERED: IRBESARTAN 150 MG TAB PO SCH (09:00)
[2019-10-21] MEDS ORDERED: POTASSIUM CHLORIDE 20 MEQ TABCR PO ONE (13:00)
--- NOTE | 2019-10-21 14:13 | Hospitalist Progress Note ---
Date of Service October 21, 2019 Assessment & Plan (1) Hypertensive urgency: Improved on -Admit to telemetry -Patient presenting from home for evaluation of elevated blood pressure -Patient was seen by PCP on 10/01 and lisinopril was changed to irbesartan; patient notes increasing blood pressure since that time -irbesartan was increased from 75 mg to 150 mg yesterday; patient started Norvasc 2.5 mg today (with instructions to increase to 5 mg daily in 1 week) -Upon arrival to the ED, patient's blood pressure was significantly elevated at 210/141 -Received labetalol 10 mg IV x2 doses and BP improved to 185/108 -will increase Norvasc to 5 mg daily (giving 2.5 mg tonight), start HCTZ 12.5 mg daily, and continue irbesartan; patient also takes clonidine 0.1 mg nightly for sleep, will continue, consider increasing if needed for BP control -PRN labetalol -Echo -Renal artery ultrasound to evaluate for stenosis (2) Hypokalemia: -K+ 3.1 -Mg+ WNL -potassium chloride 40meq x 1 tonight; start 20meq BID tomorrow due to starting HCTZ (3) DM type 2 (diabetes mellitus, type 2): -hgb a1c 5.9 10/2019 -hold metformin, utilize Novolog per protocol while hospitalized (4) Psoriatic arthritis: -Continue home pain medications (5) DVT prophylaxis: -SCDs, ambulate Subjective 59 yo F presented with accelerated HTN over the past couple of weeks. She noted an elevated BP during a recent colonoscopy and decided to adjust her diet. She is now on a ketogenic, high fat diet and reports taking in some foods that are high in sodium such as butter, cheese and cream. She then went to see her PCP which recently changed from [facility] to [facility], and her lisinopril was changed to irbesartan. She reports that lisinopril never really did a great job controlling her in the past however. She reports having been on lisinopril and norvasc and also on HCTZ at one point. However, a few years back she lost weight and asked her PCP at that time to reduce her medication burden which is how she ended up on lisinopril as monotherapy. In the last 24-48 hours she has had her irbesartan increased to 150mg daily, HCTZ 12.5mg daily and Norvasc 2.5- 5mg. Blood pressure has improved since yesterday and her headache has resolved. Although she had a headache in the ER, she states she didn't report it and no CT head was performed. She declines this now which is reasonable. She is very eager to go home and is anxious about this for her own reasons. She is tolerating PO, asymptomatic and mentating and ambulating at baseline. BP was 163/113 and she was given labetalol 10mg IV. Repeat BP vta765/108. She was given hydralazine 10mg IV and repeat was 188/122. However, I rechecked her manually with a size 12 cuff (she was being checked on a size 11 cuff). BP was 158/98 on the left and 160/90 on the right. She was cleared to go home with her new drug regimen and a close follow-up appointment with Dr. Garcia tomorrow afternoon. Review of Systems Review of Systems: All systems reviewed & are unremarkable except as noted in HPI & below Physical Exam Physical Exam: CONSTITUTIONAL: WNWD, vitals as above, generally well- appearing EYES: normal conjunctivae, no scleral icterus ENT: MMM RESPIRATORY: clear to auscultation bilaterally, no crackles, rales or wheezes, normal respiratory effort CARDIOVASCULAR: regular rate and rhythm, S1 and 2 heard without murmurs, gallops or rubs, no JVD, no peripheral edema GASTROINTESTINAL: normal bowel sounds, soft, nontender, nondistended MUSCULOSKELETAL: strength 5/5 throughout, head is normocephalic and atraumatic SKIN: warm and dry NEUROLOGIC: No facial palsy, no dysarthria. CN 2-12 grossly intact, no sensory deficit, normal cognition, normal speech, no tremor, no gross focal deficits. PSYCHIATRIC: alert cooperative and oriented to person, place and time. Results & Data Vital Signs (Past 12 Hours) Vital Signs Temp Pulse Pulse Pulse Resp BP Pulse Ox 10/21/19 11:49 36.8 C 80 17 160/99 H 96 10/21/19 07:29 37.2 C 67 18 172/93 H 97 10/21/19 03:52 36.6 C 71 17 123/78 96 10/21/19 02:14 77 Laboratory Results Short CBC 10/20/19 10/21/19 Range/Units 16:36 06:12 WBC 8.05 7.65 (4.8-10.8) K/uL Hgb 15.8 14.5 (12.0-16.0) g/dL Hct 46.0 43.3 (37-47) % Plt Count 258 255 (130-400) K/uL BMP 10/20/19 10/21/19 16:36 06:12 Sodium 140 139 Potassium 3.1 L 3.0 L Chloride 105 104 Carbon Dioxide 22 23 BUN 6 L 6 L Creatinine 0.89 0.72 Glucose 89 92 Calcium 9.8 9.2 Cardiac Enzymes 10/20/19 Range/Units 16:36 Troponin I < 0.015 (0-0.045) ng/ml Liver Function 10/20/19 Range/Units 16:36 Total Bilirubin 0.4 (0.2-1) mg/dl AST 17 (15-37) U/L ALT 25 (12-78) U/L Alkaline Phosphatase 79 (45-117) U/L Albumin 4.4 (3.4-5.0) gm/dl Urine 10/20/19 Range/Units 17:30 Urine Color Yellow Urine Appearance Clear (Clear) Urine pH 5.0 (4.5-7.5) Ur Specific [place] 1.009 (1.000-1.030) Urine Protein Negative (Negative) Urine Glucose (UA) Negative (Negative) Medications Administered Current Inpatient Medications Acetaminophen (Tylenol) 650 mg PO Q4H PRN PRN Reason: Pain or Fever Stop: 11/19/19 20:11 Last Admin: 10/21/19 07:32 Dose: 650 mg Documented by: Amlodipine Bes[facility]) [facility] [place] Stop: 11/20/19 08:59 Last Admin: 10/21/19 07:32 Dose: 5 mg Documented by: Clonidine HCl (Catapres) 0.1 mg PO HS [facility] Stop: 11/19/19 20:59 Last Admin: 10/20/19 21:53 Dose: 0.1 mg Documented by: Dextrose (Dextrose 50%) 25 - 50 ml IV UD PRN; Protocol PRN Reason: Hypoglycemia Protocol Stop: 11/19/19 20:11 Glucagon (Glucagen) 1 mg SQ UD PRN; Protocol PRN Reason: Hypoglycemia Protocol Stop: 11/19/19 20:11 Glucose (Dex4 Glucose) 4 - 8 tabs PO UD PRN; Protocol PRN Reason: Hypoglycemia Protocol Stop: 11/19/19 20:11 Glucose (Glucose 40%) 15 - 30 gm PO UD PRN; Protocol PRN Reason: Hypoglycemia Protocol Stop: 11/19/19 20:11 Hydrochlorothiazide (Hctz) 12.5 mg PO QAM [facility] Stop: 11/20/19 08:59 Last Admin: 10/21/19 07:32 Dose: 12.5 mg Documented by: Insulin Aspart (Novolog Flexpen) 0 units SC ACHS [facility] Stop: 11/19/19 20:59 Last Admin: 10/21/19 13:15 Dose: Not Given Documented by: Irbesartan (Avapro) 150 mg PO DAILY [facility] Stop: 11/20/19 08:59 Last Admin: 10/21/19 07:31 Dose: 150 mg Documented by: Labetalol HCl (Normodyne) 10 mg IV Q8H PRN PRN Reason: HTN Stop: 11/19/19 20:11 Miscellaneous (Carbohydrates For Hypoglycemia) 15 - 30 gm PO UD PRN PRN Reason: Hypoglycemia Protocol Stop: 11/19/19 20:11 Miscellaneous (Order Awaiting Action) 1 ea N/A QS [facility] Stop: 11/20/19 00:00 Last Admin: 10/21/19 10:44 Dose: Not Given Documented by: Oxycodone HCl (Roxicodone Immediate Rel) 5 mg PO QID PRN PRN Reason: Pain Stop: 11/03/19 20:55 Potassium Chloride (Klor-Con M20) 20 meq PO BID [facility] Stop: 11/20/19 08:59 Last Admin: 10/21/19 07:32 Dose: 20 meq Documented by: Vitamin D (Vitamin D3) 1,000 units PO QAM [facility] Stop: 11/20/19 08:59 Last Admin: 10/21/19 07:32 Dose: 1,000 units Documented by:
[2019-10-21] MEDS ORDERED: LABETALOL HCL IV 5 MG/ML 20ML IV STA (14:59)
--- NOTE | 2019-10-21 15:51 | Discharge Summary ---
Date of Service October 21, 2019 Admission HPI Per Admitting Provider 59-year-old female who presents the ED for evaluation of hypertension. Patient has been having ongoing elevated blood pressures for the past couple weeks. Patient was seen by her PCP on 10/01 and at that time lisinopril 40 mg was changed to irbesartan 75 mg daily. Patient has been monitoring her blood pressure as an outpatient and irbesartan was increased to 150 mg yesterday. This morning, patient started Norvasc 2.5 mg daily. She reports an ongoing headache for the past 1 month. She denies any blurred vision. No unilateral weakness, numbness, tingling. She denies lightheadedness, dizziness, diaphores is, syncopal events. No chest pain or shortness of breath. Denies abdominal pain, nausea, vomiting, diarrhea. No other recent illnesses, fevers, chills. She has noted some increased urinary frequency however denies any dysuria. Upon arrival to the ED, patient's BP is found to be 210/141. She was given labetalol 10 mg IV x2 with improvement in BP and headache. Admission Exam Per Admitting Provider Constitutional: WD/WN, vitals as above Eyes: PERRL, conjunctivae normal, anicteric sclerae ENT: external ear and nose normal, oropharynx normal Respiratory: normal respiratory effort, lungs clear to auscultation Cardiovascular: Rate/Rhythm: regular rate and regular rhythm Vessels: normal peripheral pulses Extremities: + edema (+1 edema BLE) Gastrointestinal (Abdomen): normal bowel sounds, soft, nontender, no hepatosplenomegaly Musculoskeletal: no cyanosis or clubbing, extremities motor strength 5/5 Skin: no rashes, warm and dry Neurologic: PERRL, EOMI, accommodation nl, no face palsy, no dysarthria Psychiatric: A+Ox3, euthymic affect Principal Diagnosis Hypertensive urgency Discharge Data Allergies Allergy/AdvReac Type Severity Reaction Status Date / Time aspirin Allergy Unknown SEVERE Verified 10/20/19 16:21 ABDOMINAL PAIN doxycycline Allergy Unknown SEVERE Verified 10/20/19 16:21 ABDOMINAL PAIN NSAIDS (Non-Steroidal Allergy Unknown CHEST Verified 10/20/19 16:21 Anti-Inflamma TIGHTNESS ON OCC, SEVERE ABDOMINAL PAIN Sulfa (Sulfonamide Allergy Unknown Anaphylaxis Verified 10/20/19 16:21 Antibiotics) Consultations 10/20/19 18:21 ED Decision to Admit Stat Ordered Studies 10/20/19 20:12 US duplex renal artery Urgent Hospital Course (1) Hypertensive urgency: 59-year-old female presented to the ER with hypertensive urgency. She notes having a colonoscopy a couple weeks ago and noting an elevated blood pressure at that time. As a result she changed her diet to be a "ketogenic" diet which is high in sodium. She states that her lisinopril medication was not working well to control her blood pressure and this was recently switched to irbesartan 75 mg p.o. daily by her new PCP. After her blood pressure was continually high this was changed just prior to admission to irbesartan 150 mg twice daily. However, her blood pressure continued to increase. She does also take clonidine 0.1 mg at night and has taken other blood pressure medicine regimens in the past. She was admitted to the hospitalist service and blood pressure continued to improve. She ultimately was placed on hydrochlorothiazide 12.5 mg daily in addition to her irbesartan 150 mg daily and amlodipine 2.5mg PO daily was increased to BID dosing. Around time of discharge her blood pressure was elevated above 180 systolic, and was notably very stressed about trying to leave the hospital. She was given a dose of labetalol IV which did not improve her pressure. She was then given a dose of hydralazine 10 mg IV. On my reexamination I changed the blood pressure cuff size to the appropriate larger size cuff and took her blood pressure manually bilaterally. At this point her blood pressure was 158/98 on the left and 160/90 in the right. She was cleared to go home with her new drug regimen as this was her preference with a close follow-up appointment made with her primary care doctor the following day. At time of discharge she was mentating emulating at baseline and tolerating p.o. She was hemodynamically stable and afebrile. She was advised to stop using a wrist blood pressure cuff and instead use a arm blood pressure cuff to track measurements. She was also strongly encouraged to reconsider a low-sodium diet. She was discharged in stable condition. Total Time Total Time Spent Total Time Spent (In Minutes): 60 Total Time Includes: Examination of the Patient, Discharge Planning, Medication Reconciliation, Communication With Other Providers and Other (arrange outpatient followup) Discharge Plan Discharge Items Patient Disposition: Home - Self-Care Reason For Visit: HTN URGENCY Discharge Diagnosis: Hypertensive urgency Condition on Discharge: Good Goals: BP goal <140/90 on average Activity: Resume your previous activity Non-emergency contact: Primary Care Provider Call non-emergency contact if: you have any medication questions, your symptoms worsen, your pain is not controlled, your pain is worsening, your pain is unusual for you, your pain is concerning for you and you have a fever Follow-up/Referrals: Juanita Desai, [Primary Care Provider] - Diet: Low Sodium (2gm) Addtl Attending Provider Instructions: Please take all medications as instructed on discharge list below. Please monitor your sodium intake and have a goal of reducing sodium to no more than 2000mg in 24 hours. Please ensure when taking your blood pressure at home you are using an arm cuff, and are resting for at least 30 minutes, in a sitting position with both feet flat on the floor. Please followup with your primary care provider (PCP) at the appointment listed below. This will be to recheck your blood pressure and ensure you are doing well on the new medications. You will also need some repeat nonfasting bloodwork to recheck your potassium level, which will be ordered by your PCP. It may also be appropriate for your PCP to further investigate secondary causes of hypertension if your blood pressure is difficult to control. 10/22/2019 2:00 PM Naseem Garcia III, MD [facility] It was a pleasure taking care of you! Please call if you have any questions or problems. You can reach a [facility] hospitalist on duty at [facility] 24 hours a day by calling [phone]. Take care of yourself. Ruth Uribe DO [facility] Hospitalist Pending Studies at Discharge: No Stand-Alone Forms: My [facility], Smoking Cessation Medications and DC Order Prescriptions: New potassium chloride [Klor-Con M20] 20 mEq Tablet,Er Particles/Crystals 20 meq PO BID Qty: 60 RF: 1 hydrochlorothiazide 12.5 mg tablet 12.5 mg PO DAILY Qty: 30 RF: 1 Continued metformin 500 mg tablet extended release 24hr 1,000 mg PO BID 90 Days Qty: 360 RF: 3 cholecalciferol (vitamin D3) 1,000 unit capsule 1,000 units PO QAM RF: 0 naltrexone 50 mg tablet 3 mg PO HS RF: 0 clonidine HCl 0.1 mg tablet 0.1 mg PO HS RF: 0 irbesartan 150 mg tablet 150 mg PO DAILY RF: 0 oxycodone 5 mg tablet 5 mg PO QID PRN (Reason: Pain) RF: 0 Changed amlodipine 5 mg tablet 2.5 mg PO BID Qty: 60 RF: 1 Discharge Orders: Discharge Order (Routine); Ordered 10/21/19 Ordered By: Ruth Uribe Admission Data Admit Date/Time: 10/20/19 19:41 Attending Provider: Ruth Uribe Admit Provider: Bobbi Meza Primary Care Provider: Juanita Desai Other Providers: Bobbi Meza Other Interventions: Discharge Summary Assessment (RN) Last Done: 10/21/19 19:06 DIAB (Inpt) Discharge Instructions Last Done: 10/21/19 19:05 DC Date/Time DO NOT enter until pt leaves facility: 10/21/19 19:15
[2019-10-21] MEDS ORDERED: HydrALAZINE HCL 20 MG/ML VIAL IV STA (16:28)
== END 2019-10-21 19:15 | disposition home or self-care (01) ==
LOC: ED 15:56 → 2S 15:56 → SUATTDRO 19:23 → 2S 19:46